=== PATIENT | male | born 1965 | race Caucasian/White ===

== ENCOUNTER → 2017-09-18 | Outpatient (CLI) | payer BC ==
[~2017-09-18] MED LIST: GADOBENATE DIMEGLUMINE 1 ML IV ONE; LORAZEPAM INJ 2 MG/ML VIAL ONE; SODIUM CHLORIDE 0.9% 50ML 50 ML ONE; Z.0.FLOMAX0.4 MG PO; Z.0.LEVAQUIN500 MG PO; Z.0.NORCO 5-325 TA1 PO
--- NOTE | 2017-09-19 14:02 | Diagnostic Imaging Report ---
History: Pituitary adenoma Comparison studies: None Technique: Pre-and post coronal and sagittal T1. Coronal T2. Axial DWI through the brain. Dynamic postcontrast coronal through the clival venous plexus Intravenous contrast: 20 cc of MultiHance Findings: Sella: Normal in size and configuration. Pituitary gland: 5 mm unenhancing, T2 hyperintense, T1 hypointense lesion in the left aspect of the pituitary gland. . Pituitary stalk: Normal in size and at midline. Optic chiasm: Well visualized and unremarkable. Cavernous sinuses: Normal in size and symmetric. Internal carotid arteries: Normal flow void appearance. Sphenoid sinuses: Small T2/flair hyperintensities of the periventricular and deep white matter. Mucous retention cysts at the bilateral maxillary sinuses, secondary to nonspecific inflammatory changes There are no abnormalities in the visualized sections through the brain. IMPRESSION: 1. 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 2. Mild chronic microvascular ischemic changes of the white matter Signed by: DR Darwin Webb M.D. on 09/19/2017 1:58 PM
== END ==
LOC: MRI 07:37
PROVIDERS: ATTEND Family Medicine
DX: D35.2 Benign neoplasm of pituitary gland (principal)
CPT/HCPCS: 70553; J2060